=== PATIENT | male | born 1965 | race Caucasian/White ===

== ENCOUNTER 2018-05-29 11:10 | Day surgery (SDC) | payer BC ==
[2018-05-28 08:46] VITALS: BMI 50.1
[~2018-05-29 11:10] MED LIST: LACTATED RINGERS 1,000 ML IV SCH; LIDOCAINE 1% 20 ML VIAL (10MG/ML) FOR IV START INTRADERMA PRN
[2018-05-29 11:32] VITALS: RESP 20; TEMP 98.3
[2018-05-29] MEDS ORDERED: PROPOFOL 10 MG/ML 20 ML VIAL IV ONE (12:29)
[2018-05-29] MEDS ORDERED: KETAMINE 10 MG/ML 20 ML VIAL ONE (12:29)
--- NOTE | 2018-05-29 12:50 | P.PCN ---
Date of Procedure: 05/29/18 Procedure(s) Performed: BRIEF HISTORY: Patient is a 53-year-old pleasant white male, scheduled for an elective colonoscopy as a part of evaluation of prior history of colon polyps. PROCEDURE PERFORMED: Colonoscopy with biopsy. PREOPERATIVE DIAGNOSIS: history of colon polyps IV sedation per Anesthesia. PROCEDURE: After informed consent was obtained, the patient, was brought into the endoscopy unit. IV sedation was administered by Anesthesia under continuous monitoring. Digital rectal examination was normal. Initially the Olympus CF- 160 flexible video colonoscope was then inserted in the rectum, gradually advanced into the cecum without any difficulty. Careful examination was performed as the scope was gradually being withdrawn. Ileocecal valve and the appendiceal orifice were visualized and appeared normal. Prep was excellent. Mucosa of the cecum, ascending colon, transverse colon, descending colon, sigmoid colon, and rectum appeared normal. 5 mm sessile polyp in the sigmoid colon that was removed by biopsy. Retroflexion was performed in the rectum and no lesions were seen. The patient tolerated the procedure well. IMPRESSION: 5 mm sigmoid polyp status post removal by biopsy Rest of the colon appeared normal RECOMMENDATIONS: Findings of this examination were discussed with the patient as well as his family. He was advised to follow with the biopsy results. He can have a repeat colonoscopy in 5 years.
[2018-05-29 13:08] VITALS: BP 144/87; PULSE 81
--- NOTE | 2018-06-02 14:13 | CDI ---
Date: 06/02/18 CDS/Police Patrol Lieutenant Name: Georgie Sam Phone: If any questions, call Lucie Engel Manager E Learning at [phone] Patient Name: Chaz Pierson Admit Date: 05/29/18 Discharge Date: 05/29/18 ATTENTION: The [facility] Coding Staff appreciate your assistance in clarifying documentation. Please respond to the clarification below the line at the bottom and electronically sign. The [facility] Coding staff will review the response and follow-up if needed. Please note: Queries are made part of the Legal Health Record. If you have any questions, please contact the Manager E Learning. Dear Dr. Orr, Please provide clarification as to the type of biopsy performed to remove the polyp. Please clarify if it was hot or code biopsy. Thank you for your kind consideration. MTDD
--- NOTE | 2018-06-05 05:57 | CDI ---
Date: 06/05/18 CDS/Entry Specialist Name: Georgie Sam Phone: If any questions, call Lucie Engel Manager Adult at [phone] Patient Name: Chaz Pierson Admit Date: 05/29/18 Discharge Date: 05/29/18 ATTENTION: The [facility] Coding Staff appreciate your assistance in clarifying documentation. Please respond to the clarification below the line at the bottom and electronically sign. The [facility] Coding staff will review the response and follow-up if needed. Please note: Queries are made part of the Legal Health Record. If you have any questions, please contact the Manager Adult. Dear Dr. Orr, Please provide clarification as to the type of biopsy performed to remove the polyp. Please clarify if it was hot or cold biopsy. Thank you for your kind consideration. MTDD
--- NOTE | 2018-06-09 11:05 | CDI ---
dATE: 06/09/18 CDS/Acoustic Intelligence Specialist Name: Georgie Sam Phone: If any questions, call Lucie Engel Economic Forecaster at [phone] Patient Name: Chaz Pierson Admit Date: 05/29/18 Discharge Date: 05/29/18 ATTENTION: The [facility] Coding Staff appreciate your assistance in clarifying documentation. Please respond to the clarification below the line at the bottom and electronically sign. The [facility] Coding staff will review the response and follow-up if needed. Please note: Queries are made part of the Legal Health Record. If you have any questions, please contact the Economic Forecaster. Dear Dr. Orr, Please provide clarification as to the type of biopsy performed to remove the polyp. Please clarify if it was HOT or COLD biopsy. Thank you for your kind consideration. Cold biopsy done to remove the polyp MTDD
== END 2018-05-29 13:33 | disposition home or self-care (01) ==
LOC: ORWHC2ENDO 11:10
PROVIDERS: ATTEND Internal Medicine Gastroenterology
DX: Z12.11 Encounter for screening for malignant neoplasm of colon (principal); D12.5 Benign neoplasm of sigmoid colon; Z86.010 Personal history of colon polyps; I10 Essential (primary) hypertension; E78.5 Hyperlipidemia, unspecified; Z79.82 Long term (current) use of aspirin; Z79.1 Long term (current) use of non-steroidal anti-inflammatories (NSAID); Z79.899 Other long term (current) drug therapy
CPT/HCPCS: 88305; 45380; J2704

== ENCOUNTER → 2020-07-11 | Outpatient (CLI) | payer BC ==
--- NOTE | 2020-07-11 16:35 | CONS ---
CONSULTATION REASON FOR CONSULTATION: Sleep apnea. This is a 55-year-old male patient diagnosed having severe obstructive sleep apnea based on a previous sleep study that was done in March of 2015. At that time the patient used to weigh around 391 pounds and his AHI was 69, and he was offered a CPAP machine at a pressure of 15 cm of water. His treatment has been successful throughout these past 5 years. His machine went bad and he had to drop it at [facility] to be fixed. For now, his machine seems to be working better, although he is not sure he is getting the same benefit that he used to in the past. As such, he is requesting a new CPAP unit, knowing that it has been more than 5 years since he got his original CPAP machine. I checked the compliance on his CPAP unit; he is very compliant. He has been averaging around 7.8 hours of CPAP use per night and his CPAP use for more than 4 hours is 100%. He is using a Simplus large-sized full-face mask. His starting pressure is at 7 and within 10 minutes of RAMP time his CPAP pressure is up to 15 cm of water. He is averaging around 7.8 hours of CPAP use per night. Leak is at zero L/minute and his AHI is down to 1. He has no other complaints. No snoring while on the CPAP therapy. He is averaging around 8 hours of sleep, and his [place] score is only 2. PAST MEDICAL HISTORY: 1. Obesity. 2. Severe obstructive sleep apnea with an AHI of 69. 3. Hypertension. 4. Hyperlipidemia. PAST SURGICAL HISTORY: His past surgical history includes right knee replacement. DRUG ALLERGIES: NOT KNOWN. OUTPATIENT MEDICATIONS: 1. Meloxicam 15 mg half tablet on a p.r.n. basis. 2. Metoprolol 50 mg p.o. daily. 3. Zocor 20 mg p.o. daily. 4. Flexeril 10 mg as needed. 5. Vitamin D. 6. Low-dose aspirin. SOCIAL HISTORY: Nonsmoker. No use of alcoholism. No history of IV drugs. FAMILY HISTORY: His father has obstructive sleep apnea. REVIEW OF SYSTEMS: Twelve-point review of system was done. Interval history is positive for 16-pound weight gain over the past 5 years. He is having some degree of tiredness. No headaches. No altered mentation. No chest pain. No swelling in the lower extremities. No congestion heart failure. No CVA. PHYSICAL EXAMINATION: BP is 152/84, pulse 86, respirations 16, temperature 98.2, saturation 99% on room air. Height is 5 feet 11 inches, weight is 407 and BMI is 55.9. Neck size 20-1/2 inches. GENERAL APPEARANCE: Obese, calm, comfortable. No acute distress. HEAD: Atraumatic, normocephalic. NECK: Supple. No JVD. No goiter or neck masses. Mallampati class IV. LUNGS: Clear to auscultation. HEART: Heart sounds are regular rate and rhythm. Normal S1, S2. No S3, S4. No murmurs. ABDOMEN: Soft, nontender. No organomegaly. EXTREMITIES: No edema. No cyanosis or clubbing. NEUROLOGIC: Awake and alert. There is no focal neurological deficit. IMPRESSION: 1. Severe obstructive sleep apnea with an AHI of 69, currently on CPAP pressure of 15. The functionality of this machine is in question. It has been repaired recently through [facility] 2. Obesity with an interval 16-pound weight gain over the past 5 years. Current BMI is up to 55.9. 3. Hypersomnia, improved. [place] score is down to 2. 4. Hyperlipidemia. 5. Hypertension. PLAN: 1. Continue using the current CPAP unit. 2. Compliance data was checked. 3. Will order another CPAP unit. A new machine setup will be ordered through [facility]), and if the machine is approved, the patient will see me back in 30 to 90 days for a compliancy check. 4. Encourage weight loss. 5. Optimize sleep hygiene measures. 6. Will continue to follow. MMODL / IJN: [id number] /
== END | disposition home or self-care (01) ==
LOC: SLEEP 15:27
PROVIDERS: ATTEND Internal Medicine Critical Care Medicine
DX: G47.33 Obstructive sleep apnea (adult) (pediatric) (principal); G47.10 Hypersomnia, unspecified; E66.9 Obesity, unspecified; E78.5 Hyperlipidemia, unspecified; I10 Essential (primary) hypertension; Z99.89 Dependence on other enabling machines and devices
CPT/HCPCS: 99211

== ENCOUNTER → 2020-12-05 | Outpatient (CLI) | payer BC ==
--- NOTE | 2020-12-05 17:43 | PN ---
PROGRESS NOTE This is a 55-year-old male patient with severe REBECCA with an AHI of 69 coming in for a compliancy check. He has obtained a new CPAP unit which is a ResMed unit. It is set at a pressure of 15 cm of water. On today's evaluation, he feels great. His apnea score on the CPAP machine is down to zero. He is using a Simplus full-face mask. His compliancy for more than 4 days is at 100%. He has been averaging around 8.1 hours of CPAP use per night. He has no leaks around the mask. He is quite comfortable. He is waking up refreshed and alert during the day. He does not fall asleep during day-to- day activities. No nighttime dyspnea or heartburn. His weight is around 400 pounds and he has gained around 9 pounds since July of 2020. He has hypertension and hyperlipidemia as comorbid conditions. He is trying to lose weight. No other complaints for now. His humidity level is set at 7 and the patient has regular tubing. BP is 117/73, pulse 80, respirations 16. Weight is 400. [place] score is down to 3. GENERAL APPEARANCE: Calm, comfortable. HEAD: Atraumatic, normocephalic. NECK: Supple. No JVD. No goiter or neck masses. Mallampati class IV. LUNGS: Clear to auscultation. HEART: Heart sounds are regular rate and rhythm. Normal S1, S2. No S3, S4. No murmurs. ABDOMEN: Soft, nontender. No organomegaly. EXTREMITIES: No edema. No cyanosis or clubbing. NEUROLOGIC: Awake and alert. There is no focal neurological deficit. IMPRESSION: 1. Severe obstructive sleep apnea, AHI of 69, successfully treated with a CPAP pressure of 15 cm of water. 2. Hypersomnia, recovered. 3. Snoring, recovered. 4. Morbid obesity with a body mass index of above 55. Current body weight is around 400 pounds. 5. Hyperlipidemia. 6. Hypertension. PLAN: Proceed with continuing the same CPAP pressure of 15 cm of water. Compliance check was done. The patient is using the machine effectively. The patient is benefitting from the treatment. Encourage weight loss. He is already optimizing sleep hygiene measures. No major hypersomnia or sleepiness. Machine is functional. Keep the pressure at 15. Keep the humidity at 7. May consider a Climateline at a later stage if he gets any symptoms of dryness. Otherwise he is doing well. No need for any further adjustments. See me back in a year's time in followup. MMODL / IJN: [id number] /
== END | disposition home or self-care (01) ==
LOC: SLEEP 16:18
PROVIDERS: ATTEND Internal Medicine Critical Care Medicine
DX: G47.33 Obstructive sleep apnea (adult) (pediatric) (principal); E66.01 Morbid (severe) obesity due to excess calories; E78.5 Hyperlipidemia, unspecified; I10 Essential (primary) hypertension; Z68.43 Body mass index [BMI] 50.0-59.9, adult; Z99.89 Dependence on other enabling machines and devices

== ENCOUNTER 2021-01-30 09:30 | Day surgery (SDC) | payer BC ==
[2021-01-24 11:25] VITALS: BMI 52.7
[~2021-01-30 09:30] MED LIST changes: +ACETAMINOPHEN TAB 500 MG TAB PO PRN; +GABAPENTIN 300 MG CAP PO PRN; +HYDROmorphone 0.5 MG/0.5 ML SYRINGE IVP PRN; -LACTATED RINGERS 1,000 ML IV SCH; -LIDOCAINE 1% 20 ML VIAL (10MG/ML) FOR IV START INTRADERMA PRN; +MELOXICAM 7.5 MG TAB PO PRN; +ONDANSETRON 4 MG/2 ML VIAL IVP ONE; +TRANEXAMIC ACID 1,000 MG in SODIUM CHLORIDE 0.9% 100 ML IVPB PRN; +ceFAZolin 3 GM in SODIUM CHLORIDE 0.9% 100 ML IVPB PRN; +fentaNYL (PF) 50 MCG/ML 2 ML AMP IV PRN
[2021-01-30] MEDS: LACTATED RINGERS 1,000 ML IV SCH ×2 (10:26→17:50)
[2021-01-30] MEDS ORDERED: DEXAMETHASONE SOD PHOSPHATE 4 MG/ML 1 ML VIAL IVP ONE (10:30)
[2021-01-30] MEDS ORDERED: fentaNYL (PF) 50 MCG/ML 2 ML AMP IVP ONE (10:39)
[2021-01-30] MEDS ORDERED: MIDAZOLAM 2 MG/2 ML VIAL IVP ONE (10:39)
[2021-01-30] MEDS ORDERED: NALOXONE 0.4 MG/ML 1 ML VIAL IV PRN (11:27)
[2021-01-30] MEDS ORDERED: PROPOFOL 10 MG/ML 20 ML VIAL IV ONE (11:27)
[2021-01-30] MEDS ORDERED: NEOSTIGMINE 1 MG/ML 10 ML VIAL ONE (11:27)
[2021-01-30] MEDS ORDERED: SODIUM CHLORIDE 0.9% 250 ML BAG ONE (11:27)
[2021-01-30] MEDS ORDERED: SODIUM CHLORIDE 0.9% (PF) 10 ML VIAL ONE (11:27)
[2021-01-30] MEDS ORDERED: bisacodyL 10 MG SUPP RECTAL PRN (11:27)
[2021-01-30] MEDS ORDERED: GLYCOPYRROLATE 0.2 MG/ML 2 ML VIAL ONE (11:27)
[2021-01-30] MEDS ORDERED: ONDANSETRON 4 MG/2 ML VIAL IVP PRN (11:27)
[2021-01-30] MEDS ORDERED: hydrOXYzine pamoate 25 MG CAP PO PRN (11:27)
[2021-01-30] MEDS ORDERED: HYDROmorphone 0.2 MG/1 ML SYRINGE IVP PRN (11:27)
[2021-01-30] MEDS ORDERED: TRANEXAMIC ACID 1,000 MG/10 ML VIAL ONE (11:27)
[2021-01-30] MEDS ORDERED: ROPIVACAINE 5 MG/ML 30 ML VIAL ONE (11:27)
[2021-01-30] MEDS ORDERED: MAGNESIUM HYDROXIDE 2,400 MG/10 ML CUP PO PRN (11:27)
[2021-01-30] MEDS ORDERED: SUCCINYLCHOLINE CHLORIDE VIAL 200 MG/10 ML VIAL IV ONE (11:27)
[2021-01-30] MEDS ORDERED: NA PHOS,M-B/NA PHOS,DI-BA 133 ML ENEMA RECTAL PRN (11:27)
[2021-01-30] MEDS ORDERED: ROCURONIUM 10 MG/ML (5 ML VIAL) IV ONE (11:27)
[2021-01-30] MEDS ORDERED: fentaNYL (PF) 50 MCG/ML 2 ML AMP ONE (11:27)
[2021-01-30] MEDS ORDERED: HYDROmorphone 0.5 MG/0.5 ML SYRINGE IVP PRN (11:27)
[2021-01-30] MEDS ORDERED: HYDROmorphone 1 MG/ML 1 ML SYRINGE IVP PRN (11:27)
[2021-01-30] MEDS ORDERED: MIDAZOLAM 2 MG/2 ML VIAL ONE (11:27)
[2021-01-30] MEDS ORDERED: HYDROcodone/APAP 7.5-325MG 1 EACH TAB PO PRN ×2 (11:29)
[2021-01-30] MEDS ORDERED: ceFAZolin 3,000 MG in SODIUM CHLORIDE 0.9% IRRIGATIO 3,000 ML IRRIGATION ONE (12:12)
[2021-01-30] MEDS: ROPIVACAINE 246.25 MG, EPINEPHrine 0.5 MG, KETOROLAC 30 MG, cloNIDine HCL/PF 80 MCG, WA... MISCELLANE PRN ×10 (12:33→12:55)
--- NOTE | 2021-01-30 13:14 | P.OP ---
Date of Procedure: 01/30/21 Preoperative Diagnosis: severe osteoarthritis left knee Postoperative Diagnosis: severe osteoarthritis left knee Procedure(s) Performed: left total knee arthroplasty utilizing KOTURAaire patient specific guides Implants: Boles and Nephew Cruciate Retaining Journey II CR Oxinium Femoral Component size 7, left Boles & Nephew Journey Nonporous Tibial Baseplate size 7, left Boles & Nephew Journey II CR, XLPE Articular Insert, 9 mm, size 7-8 Boles & Nephew Kristina II Resurfacing Patellar Component, Oval, 35 mm All components were cemented using Palacose R bone cement. The articulation is Oxinium on polyethylene. Visionaire patient specific guides Anesthesia: GETA Surgeon: Konstantin Rodriguez Wood Heel Fitter Machine #1: Jil Pierce Estimated Blood Loss (ml): 25 Pathology: other (bone and cartilage) Condition: stable Disposition: PACU Indications for Procedure: After failure of conservative treatment we discussed the surgical and nonsurgical treatment options at length. Patient wishes to proceed with a total knee arthroplasty. Complications specific to this procedure were discussed at length, including but not limited to infection, bleeding, stiffness, and nerve injury. Covid-19 was also discussed at length with the patient, and they are aware of the current policies and procedures. The patient was given the option of delaying surgery, but they elect to proceed knowing these risks. Patient is aware of all these complications and informed consent was obtained Operative Findings: the operative findings are consistent with severe osteoarthritis of the left knee Description of Procedure: Patient was seen in the preoperative area and the consent was reviewed and the operative site was marked with a skin marker. The patient verified the procedure and the operative site. An adductor canal pain catheter was placed by anesthesia in the preoperative area. The patient was then brought to the operating room and given preoperative antibiotics intravenously. A gram of transexamic acid was given intravenously. A spinal anesthetic was achieved.attempted but wasn't able to be achieved. A general anesthetic was then administered by the anesthesia department. A tourniquet was placed on the upper thigh and the lower extremity was prepped with chlorhexidine and draped in usual sterile fashion. A universal timeout was then performed which confirmed the patient's name, surgical site, ALLERGIES, and consent. The lower extremity was then exsanguinated and tourniquet was inflated to 350 mmHg. A standard anterior midline approach to the knee was performed. The skin and subcutaneous tissue were sharply dissected down to the patellar tendon. A medial parapatellar arthrotomy was then performed. The knee was then extended, the patellar was everted, and the knee was again flexed. The infra-patellar fat pad was removed in order to enhance exposure. The anterior horns of both menisci were excised, and a release was performed to the posterior medial aspect of the knee. On gross visual inspection, there was complete loss of articular cartilage in the medial and patellofemoral joint spaces. There was also significant cartilage damage in the lateral compartment. There were multiple periarticular osteophytes globally about the knee. The patient specific guide was placed on the distal femur, and pinned in place. Using the patient specific guide, the distal femoral cut was performed. The cutting block was then removed and the cut was checked for symmetry. The spikes of the femoral block was then placed into the predrilled holes, and malleted into place. Two 45 mm pins were then placed into the fixation holes on the cutting block. An mateo wing was then used to ensure there would be no notching with the anterior cut. The anterior condyles were cut without notching. The anterior chord cut was then performed, followed by the posterior cut, posterior chamfer cut, and the anterior chamfer cut. The collateral ligaments were protected during the entire process. The cutting block was then removed. Any remaining bone and osteophytes were removed from the femur with a Rominger. The femoral canal was plugged with autologous bone. Attention was then directed to the tibia. The remaining ACL was removed with a Ronguer, and the tibia was then gently subluxed forward with a large bent knee retractor. Any remaining menisci were excised. The posterior lateral corner was cauterized in order to coagulate the lateral geniculate artery. The patient specific guide for the tibia was then placed and was held in place with pins. Pinholes were then placed for rotation of the tibial component as well. Proximal tibia was then cut and sized. The femoral trial was placed. A narrow saw blade was then used to remove the anterior intracondylar femoral bone. The CR notch trial was then placed. The tibial trial was placed with the appropriate-sized insert. The knee was able to fully extend and flex to 130 and was stable throughout all range of motion. The knee was then extended and the patella was everted. Patella was then measured, and then using an osteotomy guide, the patella was cut at the appropriate level. The patella was then measured and drilled and the patella trial was then placed. The knee was then taken through range of motion with the patella trial and the patella tracked normally using the no thumbs technique.. The knee was then extended patella trial was then removed and the patella was everted. Knee was then flexed and lug holes were drilled through the femoral trial and the femoral trial was then removed. The tibial was then re-exposed, and the tibial broach guide was then pinned in place after it was set for the appropriate rotation to allow for the most coverage without overhang. The tibia was then reamed and broached. The cut surfaces of bone were then irrigated with pulsatile lavage. The posterior structures were injected with the ropivacaine solution. The knee was also irrigated with Irrisept solution. The components were then opened, the cement was mixed, and the components were then cemented in place. The cement was allowed to harden with the knee in full extension. While the cement was hardening, the remaining soft tissues were then injected with a ropivacaine solution, which consisted of 246.25 mg of ropivacaine, 0.5 mg of epinephrine, 30 mg of Toradol, 80 g of clonidine, and 48.45 mL of sterile water, for a total of 100 mL of fluid injected. After the cemented hardened. The tourniquet was released, and hemostasis was obtained. A second gram of transexamic acid was given intravenously. The knee was again irrigated. The knee was again taken through range of motion and found to be stable throughout all range of motion of 0-130, and the patella tracked normally. The fascia was then closed with 0 Vicryl followed by #2 strata fix suture. The subcutaneous tissue was closed with 3-0 Vicryl and 3-0 strata fix. Exofin glue was used for the skin and placed with the knee in flexion. After the glue had dried, and Optafoam silver impregnated dressing was applied. The patient was then transferred to recovery room in stable condition. The assistant manager retail [employer] Duffy was required due the complexity surgery and the need for a skilled cardiovascular surgical tech. She assisted in positioning, draping, retraction, and closure of the wound.
[2021-01-30] MEDS ORDERED: LACTATED RINGERS 1,000 ML IV ONE (13:22)
--- NOTE | 2021-01-30 14:46 | P.ANPRN ---
Procedure Note - Anesthesia - Nerve Block Performed Left Adductor Canal Time Out Performed: Yes (:) Date of Procedure: 01/30/21 Procedure Start Time: Procedure Stop Time: Location of Patient: PreOp Indication: Acute Post-Operative Pain, Requested by Surgeon (Dr Konstantin Rodriguez) Sedation Type: Sedate with meaningful contact maintained Preparation: Sterile Prep, Sterile Dressing Position: Supine Catheter: Indwelling Needle Types: Pajunk Needle Gauge: 21 Ultrasound used to visualize needle placement: Yes Ultrasound used to observe medication spread: Yes Injectate: 0.5% Ropivacaine (see comment for volume) (16cc) Blood Aspirated: No Pain Paresthesia on Injection Noted: No Resistance on Injection: Normal Image Stored and Saved: Yes Events: Uneventful and Well Tolerated
--- NOTE | 2021-01-30 14:48 | P.ANPRN ---
Procedure Note - Anesthesia - Nerve Block Performed Left iPack Time Out Performed: Yes (:41) Date of Procedure: 01/30/21 Procedure Start Time: Procedure Stop Time: : Location of Patient: PreOp Indication: Acute Post-Operative Pain, Requested by Surgeon (Dr Konstantin Rodriguez) Sedation Type: Sedate with meaningful contact maintained Preparation: Sterile Prep Position: Supine Catheter: None Needle Types: Pajunk Needle Gauge: 21 Ultrasound used to visualize needle placement: Yes Ultrasound used to observe medication spread: Yes Injectate: 0.5% Ropivacaine (see comment for volume) (14cc + 6cc preservative free normal saline) Blood Aspirated: No Pain Paresthesia on Injection Noted: No Resistance on Injection: Normal Image Stored and Saved: Yes Events: Uneventful and Well Tolerated
--- NOTE | 2021-01-30 15:31 | XR ---
EXAMINATION TYPE: XR knee limited LT DATE OF EXAM: 01/30/2021 COMPARISON: NONE TECHNIQUE: Two views submitted HISTORY: Post op FINDINGS: There is a prosthetic knee in near anatomic alignment. There is soft tissue edema and emphysema. IMPRESSION: 1. Postoperative change. Appears in near-anatomic alignment
[2021-01-30] MEDS: SODIUM CHLORIDE 0.9% 1,000 ML IV SCH (17:51)
[2021-01-30] MEDS: ASPIRIN 325 MG TAB PO SCH (19:57)
[2021-01-30] MEDS ORDERED: CYCLOBENZAPRINE 10 MG TAB PO SCH (21:00)
[2021-01-30] MEDS ORDERED: SENNOSIDES-DOCUSATE SODIUM 1 EACH TAB PO SCH (21:00)
[2021-01-30] MEDS ORDERED: ASPIRIN 81 MG PO SCH (21:00)
[2021-01-31] MEDS: SODIUM CHLORIDE 0.9% 1,000 ML IV SCH (04:56)
--- NOTE | 2021-01-31 08:02 | P.PN ---
Progress Note - Text The patient is status post left adductor canal catheter placement and left I pack block. The catheter and I pack block were placed for postoperative pain control, status post total [ left] arthroplasty. Ropivacaine 0.2% is infusing at 8 mLs per hour. The patient has no complaints of left lower extremity numbness or weakness. Patient's VAS score is 1-2-10. Assessment: Patient's adductor canal catheter is in place and working appropriately. Plan: continue infusion and adjust it as needed.
--- NOTE | 2021-01-31 08:09 | P.DS ---
Providers Expected date of discharge: 01/31/21 Attending physician: Konstantin Rodriguez Consults: 01/30/21 11:27 Consult Physician Routine Consulting Provider: Paty Tobin Consult Reason/Comments: medical management Do you want consulting provider notified?: Yes Primary care physician: Paty Tobin - Discharge Diagnosis(es) (1) Degenerative arthritis of left knee Current Visit: Yes Status: Acute (2) Status post left knee replacement Current Visit: Yes Status: Acute Hospital Course: This is a 56-year-old male who was last seen with complaint of continued left knee pain. The patient has a known history of degenerative arthritis of the left knee and presents to discuss surgical options. After discussion and consideration the patient elects to proceed with total left knee arthroplasty. The patient is seen preoperatively by his primary care physician and cleared for surgery. The patient is admitted to [facility] for total left knee arthroplasty. The procedure is performed without complication or sequelae. He is doing well postoperatively. Vital signs are stable at discharge. Labs are stable at discharge. the patient is ambulating well with walker with minimal assistance. The patient is discharged to home on postop day #1 pending medical clearance. Please see orders and refer to the med rec for accurate list of medications. Patient Condition at Discharge: Good Plan - Discharge Summary Discharge Rx Participant: Yes New Discharge Prescriptions: New Aspirin 325 mg PO BID #60 tab Gabapentin 300 mg PO BID 5 Days #10 cap HYDROcodone/APAP 7.5-325MG [Etoile 7.5-325] 1 - 2 tab PO Q6H PRN #32 tab PRN Reason: Pain Sennosides [Senokot] 2 tab PO DAILY PRN #60 tablet PRN Reason: Constipation Ondansetron Odt [Zofran Odt] 1 tab PO Q8HR PRN #10 tab PRN Reason: Nausea Celecoxib [CeleBREX] 200 mg PO DAILY 5 Days #5 capsule No Action Simvastatin [Zocor] 20 mg PO QAM Aspirin 81 mg PO HS Metoprolol Succinate [Toprol XL] 50 mg PO QAM Ibuprofen [Motrin] 800 tab PO Q6H PRN PRN Reason: Pain Cyclobenzaprine [Flexeril] 10 mg PO HS Cholecalciferol [Vitamin D3 (25 Mcg = 1000 Iu)] 50 mcg PO DAILY Discharge Medication List Aspirin 81 mg PO HS 10/04/14 [History] Metoprolol Succinate [Toprol XL] 50 mg PO QAM 10/04/14 [History] Simvastatin [Zocor] 20 mg PO QAM 10/04/14 [History] Ibuprofen [Motrin] 800 tab PO Q6H PRN 10/05/14 [History] Cholecalciferol [Vitamin D3 (25 Mcg = 1000 Iu)] 50 mcg PO DAILY 01/24/21 [Histor y] Cyclobenzaprine [Flexeril] 10 mg PO HS 01/24/21 [History] Aspirin 325 mg PO BID #60 tab 01/30/21 [Rx] Celecoxib [CeleBREX] 200 mg PO DAILY 5 Days #5 capsule 01/30/21 [Rx] Gabapentin 300 mg PO BID 5 Days #10 cap 01/30/21 [Rx] HYDROcodone/APAP 7.5-325MG [Etoile 7.5-325] 1 - 2 tab PO Q6H PRN #32 tab 01/30/21 [Rx] Ondansetron Odt [Zofran Odt] 1 tab PO Q8HR PRN #10 tab 01/30/21 [Rx] Sennosides [Senokot] 2 tab PO DAILY PRN #60 tablet 01/30/21 [Rx] Follow up Appointment(s)/Referral(s): Konstantin Rodriguez DO [Doctor of Osteopathic Medicine] - 2 Weeks Activity/Diet/Wound Care/Special Instructions: Weightbearing as tolerated with a walker. CPM 5-6h daily as tolerated. Leave dressing intact. May be removed by home care nurse or by patient in 10 days. May shower with dressing on. Recommend use of compression stockings daily until follow up to help prevent swelling and blood clots. May remove at night before sleeping. Please take aspirin 325mg twice daily for 30 days to prevent blood clots. Please follow up with [facility] and call with any questions or concerns, .
[2021-01-31 08:34] VITALS: BP 127/78; PULSE 80; RESP 14; TEMP 97.9
[2021-01-31] MEDS ORDERED: CHOLECALCIFEROL 25 MCG (1000 IU) TABLET PO SCH (09:00)
[2021-01-31] MEDS ORDERED: ATORVASTATIN 10 MG TAB PO SCH (09:00)
[2021-01-31] MEDS ORDERED: METOPROLOL SUCCINATE (ER) 50 MG TAB.ER.24H PO SCH (09:00)
[2021-01-31] MEDS ORDERED: MELOXICAM 7.5 MG TAB PO SCH (09:00)
[2021-01-31] MEDS: ASPIRIN 325 MG TAB PO SCH (09:31)
[2021-01-31] MEDS: LACTATED RINGERS 1,000 ML IV SCH (10:10)
[2021-01-31 10:56] LABS: Basophils # (A) 0.02 X 10*3/uL (0.00-0.10); Basophils % (A) 0.2 %; Eosinophils # (A) 0.04 X 10*3/uL (0.04-0.35); Eosinophils % (A) 0.3 %; HGB 13.1 g/dL (13.0-17.0); Lymphocytes # (A) 2.07 X 10*3/uL (0.90-5.00); Lymphocytes % (A) 16.9 %; MCH 28.4 pg (27.0-32.0); MCV 88.7 fL (80.0-97.0); Mean Platelet Volume 12.7 fL (9.5-12.2); Monocytes # (A) 1.14 X 10*3/uL (0.20-1.00); Monocytes % (A) 9.3 %; Neutrophils # (A) 8.97 X 10*3/uL (1.80-7.70); Platelet Count 206 X 10*3/uL (140-440); RBC 4.62 X 10*6/uL (4.40-5.60); RDW 13.7 % (11.5-14.5); WBC 12.28 X 10*3/uL (4.50-10.00)
--- NOTE | 2021-01-31 11:38 | P.CONS ---
History of Present Illness - Reason for Consult Consult date: 01/31/21 Medical management - History of Present Illness HISTORY OF PRESENT ILLNESS This is a 56-year-old male patient of Dr. Paty Tobin with past medical history of hypertension, hyperlipidemia, obstructive sleep apnea, chronic back pain. Patient has been brought into the hospital under the care of Dr. Konstantin Rodriguez status post left total knee arthroplasty. Patient is postop day #1 and is scheduled for discharge home today. He states the area is sore but no significant pain. He denies any chest pain or shortness of breath. No lightheadedness or dizziness. No abdominal pain, nausea, vomiting diarrhea. He has been afebrile, heart rate 80, blood pressure 127/78, pulse ox 90% on room air. WBC 12.2, hemoglobin 13.1, platelet count 206. Patient is cleared for medicine for discharge home with follow-up with Dr. Tobin. REVIEW OF SYSTEMS Constitutional: No fever, no chills, no night sweats. No weight change. No weakness, fatigue or lethargy. No daytime sleepiness. EENT: No headache. No blurred vision or double vision, no loss of vision. No loss of Hearing, no ringing in the ears, no dizziness. No nasal drainage or congestion. No epistaxis. No sore throat. Lungs: No shortness of breath, cough, no sputum production. No wheezing. Cardiovascular: No chest pain, no lower extremity edema. No palpitations. No paroxysmal nocturnal dyspnea. No orthopnea. No lightheadedness or dizziness. No syncopal episodes. Abdominal: No abdominal pain. No nausea, vomiting. No diarrhea. No constipation. No bloody or tarry stools.. No loss of appetite. Genitourinary: No dysuria, increased frequency, urgency. No urinary retention. Musculoskeletal: No myalgias. No muscle weakness, no gait dysfunction, no frequent falls. No back pain. No neck pain. Mild left knee discomfort. Integumentary: No wounds, no lesions. No rash or pruritus. Neurologic: No aphasia. No facial droop. No change in mentation. No head injury. No headache. No paralysis. No paresthesia. Psychiatric: No depression. No anxiety. . Endocrine: No abnormal blood sugars. No weight change. SOCIAL HISTORY Patient is a lifelong nonsmoker. He drinks alcohol occasionally. No illicit drug use. He lives at home with his who is an RN.. FAMILY HISTORY Father is alive with history of CHF, hypertension, pacemaker, hyperlipidemia. Mother has history of diabetes and early dementia. Patient has one brother with arthritis and hypertension. Patient is one sister. Patient has one son and one daughter with no major medical problems. PHYSICAL EXAMINATION Gen: This is a 56-year-old morbidly obese male patient. He is resting in bed pain and appears to be comfortable and in no acute distress. HEENT: Head is atraumatic, normocephalic. Pupils equal, round. Sclerae is anicteric. NECK: Supple. No JVD. No lymphadenopathy. No thyromegaly. LUNGS: Clear to auscultation. No wheezes or rhonchi. No intercostal retractions. HEART: Regular rate and rhythm. No murmur. ABDOMEN: Soft. Bowel sounds are present. No masses. No tenderness. EXTREMITIES: No pedal edema. No calf tenderness. No calf tenderness. Small dressing in place to the left knee. NEUROLOGICAL: Patient is awake, alert and oriented x3. Cranial nerves 2 through 12 are grossly intact. ASSESSMENT AND PLAN 1. Osteoarthritis status post left knee total arthroplasty, postop day #1. Patient has no new complaints. Continue incentive spirometry to reduce incidence of atelectasis and hospital-acquired pneumonia. Continue current pain management. Patient is on aspirin 325 mg twice daily for DVT prophylaxis. 2. Hyperlipidemia. Continue Zocor 20 mg daily. 3. Hypertension. Continue Toprol-XL 50 mg daily. 4. Obstructive sleep apnea with CPAP. 5. Chronic back pain. Continue Celebrex, gabapentin, Flexeril. DISCHARGE PLAN Home. Impression and plan of care have been directed as dictated by the signing physician. Antonia Jaffe nurse practitioner acting as scribe for signing physician. Past Medical History Past Medical History: Hyperlipidemia, Hypertension, Osteoarthritis (OA), Sleep Apnea/CPAP/BIPAP Additional Past Medical History / Comment(s): uses CPAP History of Any Multi-Drug Resistant Organisms: None Reported Past Surgical History: Joint Replacement, Orthopedic Surgery Additional Past Surgical History / Comment(s): RT KNEE REPLACEMENT, RIGHT HEEL- ACHILLES TENDON REPAIR , CYST REMOVED FROM BACK, COLONOSCOPY X3 Past Anesthesia/Blood Transfusion Reactions: No Reported Reaction Additional Past Anesthesia/Blood Transfusion Reaction / Comm: BP quite elevated after last knee replacement, had to stay few extra days-not sure if related to anesthesia Past Psychological History: No Psychological Hx Reported Smoking Status: Never smoker Past Alcohol Use History: Occasional Past Drug Use History: None Reported - Past Family History Brother(s) Family Medical History: Cancer Additional Family Medical History / Comment(s): SKIN CANCER Father Family Medical History: Cancer Additional Family Medical History / Comment(s): SKIN CANCER Medications and Allergies Home Medications Medication Instructions Recorded Confirmed Type Aspirin 81 mg PO HS 10/04/14 01/30/21 History Metoprolol Succinate [Toprol XL] 50 mg PO QAM 10/04/14 01/30/21 History Simvastatin [Zocor] 20 mg PO QAM 10/04/14 01/30/21 History Ibuprofen [Motrin] 800 tab PO Q6H PRN 10/05/14 01/30/21 History Cholecalciferol [Vitamin D3 (25 50 mcg PO DAILY 01/24/21 01/30/21 History Mcg = 1000 Iu)] Cyclobenzaprine [Flexeril] 10 mg PO HS 01/24/21 01/30/21 History Aspirin 325 mg PO BID #60 tab 01/30/21 Rx Celecoxib [CeleBREX] 200 mg PO DAILY 5 Days #5 capsule 01/30/21 Rx Gabapentin 300 mg PO BID 5 Days #10 cap 01/30/21 Rx HYDROcodone/APAP 7.5-325MG [[place] 1 - 2 tab PO Q6H PRN #32 tab 01/30/21 Rx 7.5-325] Ondansetron Odt [Zofran Odt] 1 tab PO Q8HR PRN #10 tab 01/30/21 Rx Sennosides [Senokot] 2 tab PO DAILY PRN #60 tablet 01/30/21 Rx Allergies Allergy/AdvReac Type Severity Reaction Status Date / Time No Known Allergies Allergy Verified 01/30/21 10:06 Physical Exam Vitals: Vital Signs Temp Pulse Resp BP BP Pulse Ox 01/31/21 08:32 97.9 F 80 14 127/78 98 01/31/21 03:04 98.0 F 81 18 157/60 96 01/30/21 20:00 18 01/30/21 19:00 98.3 F 97 18 128/78 96 01/30/21 17:55 98.2 F 85 20 168/66 95 03/23/21 17:25 87 16 149/63 96 01/30/21 16:30 82 16 151/62 96 01/30/21 16:05 83 16 148/62 96 01/30/21 15:30 84 16 147/65 95 01/30/21 15:00 86 16 145/63 95 01/30/21 14:45 85 16 147/68 95 01/30/21 14:30 84 16 147/69 96 01/30/21 14:15 85 16 149/72 96 01/30/21 14:00 98 16 151/69 95 01/30/21 13:48 97 F L 102 H 16 152/70 95 01/30/21 11:12 76 18 127/72 95 01/30/21 10:04 97.7 F 87 18 156/81 96 Intake and Output 01/30/21 01/31/21 01/31/21 22:59 06:59 14:59 Output Total 450 Balance -450 Output: Urine 450 Other: Voiding Method Toilet # Voids 1 2 Weight 176.4 kg Results CBC & Chem 7: 01/31/21 06:51
== END 2021-01-31 12:33 ==
LOC: OR 09:30 → 4SSUR 17:37 → OR 01-31 12:33
PROVIDERS: ATTEND Orthopaedic Surgery
DX: M17.12 Unilateral primary osteoarthritis, left knee (principal); I10 Essential (primary) hypertension; E78.5 Hyperlipidemia, unspecified; Z79.899 Other long term (current) drug therapy; Z83.3 Family history of diabetes mellitus; Z82.49 Family history of ischemic heart disease and other diseases of the circulatory system
CPT/HCPCS: 97110; 97161; 64447; 64448; 76942; 85025; 73560; 27447; C1713; C1776; J2250; J0171; J1100; J0690 ×3; J2405; J3010; J1885; J2795; J0735; 88300

== ENCOUNTER → 2022-12-10 | Outpatient (CLI) | payer BC ==
--- NOTE | 2022-12-10 15:51 | P.PN ---
Progress Note - Text Progress Note Date: 12/10/22 This is a 57-year-old male patient was being seen in follow-up in the sleep Center regarding her obstructive sleep apnea. The patient last evaluation with me in the sleep Center was approximately 2 years ago. The patient is known to have severe obstructive sleep apnea. The patient has an AHI of 69 and the patient has a functioning ResMed CPAP unit which is adjusted at a pressure of 15 cm of water. The patient is still working for [employer]. He drives long distances. Is able to function well. He is alert and awake during the day he does not fall asleep while driving and he has not been involved in a motor vehicle accident because of feeling drowsy or sleepy. He remains extremely compliant to CPAP treatment. Based on a 30 day compliancy, the patient has utilizes machine 100% of the time. The patient has achieved more than 4 hours of usage 100% of the time. His AHI while in treatment is down to 1.2 and his leak is in order of 1 L/m. The patient is using a full facemask, Simplus, large size. He denies having any issues with his CPAP. He is in need for supplies in cluding tubing and filters. No humidity issues. No dryness issues in his mouth. He is a mouth breather. He wakes up refreshed during the day. No snoring while on CPAP therapy. No cardiac arrhythmias. No angina. No palpitations. No exertional dyspnea. No stroke. No other complications. BP is 163/91 with a pulse of 100 and the respiration of 18 with a temperature of 98 and oxygen saturation of 96% and the patient has an [place] score of 2. Body weight is 410. Gen. appearance the patient is morbidly obese, comfortable no acute distress and the patient is carrying very much comfortable. The patient appeared well nourished and normally developed. Vital signs as documented. Head exam is unremarkable. No scleral icterus or corneal arcus noted. Neck is without jugular venous distension, thyromegaly, or carotid bruits. The patient is a Mallampati class IV. The patient has significant crowding of posterior pharynx. Carotid upstrokes are brisk bilaterally. Lungs are clear to auscultation and percussion. Cardiac exam reveals the PMI to be normally sized and situated. Rhythm is regular. First and second heart sounds normal. No murmurs, rubs or gallops. Abdominal exam reveals normal bowel sounds, no masses, no organomegaly and no aortic enlargement. Extremities are nonedematous and both femoral and pedal pulses are normal.Examination of the skin revealed no evidence of significant rashes, suspicious appearing nevi or other concerning lesions.Neurologically, the patient is awake and alert and the patient does not have any focal neurological deficit. Cranial nerves are es sentially intact. Assessment Severe REBECCA with an AHI of 69, successfully treated with a CPAP pressure of 15 cm of water with a full facemask, no ongoing issues for now and his treatment is very successful. He quality is adequate. No snoring. Obesity, weight is stable at 410 pounds Hypersomnia, recovered Snoring, recovered Hypertension Hyperlipidemia Plan Continue CPAP therapy and refills were given on the supplies No adjustments to be done on his CPAP pressure Machine is functional The patient is utilizing a full facemask Encourage weight loss Follow-up with a primary care physician regarding his hypertension See me back in 2 years time and follow-up.
== END ==
LOC: SLEEP 15:01
PROVIDERS: ATTEND Internal Medicine Critical Care Medicine
DX: G47.33 Obstructive sleep apnea (adult) (pediatric) (principal); Z99.89 Dependence on other enabling machines and devices; E66.9 Obesity, unspecified; I10 Essential (primary) hypertension; E78.5 Hyperlipidemia, unspecified
CPT/HCPCS: 99212